=== PATIENT | male | born 1980 | race African-American/Black ===

== ENCOUNTER 2020-02-03 00:26 | Emergency (ER) | payer OTHER, SELFPAY ==
[2020-02-03 00:48] VITALS: BP 150/79; PULSE 90; RESP 18; TEMP 36.4; O2SAT 96; BMI 51.9
--- NOTE | 2020-02-03 01:58 | XR_ITS ---
EXAMINATION: XR ANKLE, LEFT CLINICAL INFORMATION: Pain COMPARISON: None TECHNIQUE: AP, lateral, and mortise views of the left ankle. FINDINGS: There is no fracture or dislocation. The ankle mortise is congruent. Prominent heel spurs. There is diffuse soft tissue swelling. No ankle joint effusion. XR/XR ankle LT min 3V IMPRESSION: Diffuse soft tissue swelling without acute osseous abnormality. Heel spurs.
[2020-02-03 02:00] VITALS: BP 119/76; PULSE 84; RESP 18; TEMP 36.9; O2SAT 97
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
[2020-02-03] MEDS: NaPROXEN 500 MG TABLET PO (02:13)
[2020-02-03 03:51] VITALS: BP 130/80; PULSE 90; RESP 18; TEMP 36.8; O2SAT 97
== END 2020-02-03 03:55 | disposition home or self-care (01) ==
PROVIDERS: Emergency Provider Emergency Medicine
DX: S39.012A Strain of muscle, fascia and tendon of lower back, initial encounter (principal); S46.811A Strain of other muscles, fascia and tendons at shoulder and upper arm level, right arm, initial encounter; S93.402A Sprain of unspecified ligament of left ankle, initial encounter; M25.512 Pain in left shoulder; V43.52XA Car driver injured in collision with other type car in traffic accident, initial encounter; Y93.9 Activity, unspecified; Y92.410 Unspecified street and highway as the place of occurrence of the external cause; Y99.9 Unspecified external cause status; Z79.899 Other long term (current) drug therapy
CPT/HCPCS: 29515; 73610; 99283; 99284